=== PATIENT | male | born 1975 | race Caucasian/White ===

== ENCOUNTER 2016-10-20 06:47 | Inpatient (IN) | payer OTHER ==
[~2016-10-20] VITALS: Ht 180.3 cm; Wt 72.0 kg
[~2016-10-20 06:47] MED LIST: BACTRIM,SEPT1 TABLET PO; CLINDAMYCIN HC300 MG PO; FLEXERIL10 MG PO; LIDODERM 5% P1 PATCH TD; LOW DOSE ASPIRI81 M2 PO; NAPROXEN500 MG PO; NOHOMEMEDS; PERCOCET 5/31 TABLET PO; VICODIN,LORT1 TABLET PO
[2016-10-20 07:35] LABS: EOSINOPHIL COUNT 0.1 K/uL (0-0.3); IMMATURE GRANULOCYTE (%) 0.3 % (0.0-0.7); LYMPHOCYTE COUNT 0.7 K/uL (1.0-2.8); MCH 30.8 PG (29.0-34.0); MCHC 35.2 G/DL (30.0-36.0); MCV 87.5 FL (86-99); MEAN PLAT.VOLUME 11.2 uM^3 (9.0-12.4); MONOCYTE (%) 3.5 % (3-12); MONOCYTE COUNT 0.3 K/uL (0-0.8); NEUTROPHIL (%) 87.3 % (45-76); NEUTROPHIL COUNT 8.3 K/uL (1.8-6.4); PLATELET COUNT 140 K/uL (156-360); RBC DIS.WIDTH-CV 13.6 % (11.8-14.6); RBC DIS.WIDTH-SD 43.2 % (39-53); RED BLOOD COUNT 5.03 M/uL (4.00-5.50); WHITE BLOOD COUNT 9.5 K/uL (4.1-10.2)
[2016-10-20 07:36] LABS: INTER. NORMALIZED RATIO 1.1; PROTHROMBIN TIME 11.6 (9.2-11.2); PTT 31.5 (25-32)
[2016-10-20 08:12] LABS: TROP-I INTERPRETATION NEGATIVE; TROPONIN-I < 0.01 ng/mL (0.0-0.30)
[2016-10-20 08:13] LABS: ANION GAP 8 MEQ/L (2-14); CHLORIDE 103 MEQ/L (99-109); GFR ESTIMATE (CALCULATED) > 59 mL/min/; GLUCOSE 90 mg/dL (70-99); POTASSIUM 3.7 MEQ/L (3.7-5.4); SAMPLE HEMOLYSIS CHECK 0; SAMPLE ICTERIC CHECK 0; SAMPLE LIPEMIA CHECK 0; SODIUM 139 MEQ/L (136-147); UREA NITROGEN (BUN) 6 mg/dL (9-23)
[2016-10-20 09:47] LABS: APPEARANCE CLEAR/COLORLESS
[2016-10-20 09:48] LABS: CSF EOSINOPHILS ND % (0-25); MONONUCLEAR WBC'S ND % (50-90); POLYNUCLEAR WBC'S ND % (0-3); RED CELL COUNT 0 /MM^3 (0-1); RED CELL DILUTION 1; WBC DILUTION 1; WHITE CELL COUNT 0 /MM^3 (0-5); WHITE CELL RAW COUNT 0
[2016-10-20] MEDS ORDERED: LOW DOSE ASPIRI81 M1 PO (10:29)
[2016-10-20] MEDS ORDERED: LORATADINE10 M2 PO (10:29)
[2016-10-20] MEDS ORDERED: ATORVASTATIN CA10 MG PO (10:30)
[2016-10-20] MEDS ORDERED: CITALOPRAM HBR20 MG PO (10:30)
[2016-10-20] MEDS ORDERED: MOTRIN400 MG PO (10:30)
[2016-10-20 10:31] LABS: D-DIMER ELISA 0.45 mg/L FEU (< 0.57)
[2016-10-20 11:59] LABS: ADD MIUA? YES; BILIRUBIN NEGATIVE; BLOOD NEGATIVE; COLOR YELLOW ((YELLOW)); GLUCOSE (STRIP) NEGATIVE; KETONES NEGATIVE; LEUKOCYTES NEGATIVE; NITRITE NEGATIVE; PROTEIN (STRIP) NEGATIVE; SPECIFIC GRAVITY 1.015 (1.000-1.030); UROBILINOGEN 0.2 MG/DL (0.2-1.0)
[2016-10-20 12:03] LABS: BACTERIA NONE SEEN /HPF; EPITHELIAL CELLS NONE SEEN /HPF; HYALINE CASTS 0-5 /LPF; MUCUS TRACE /LPF; RED BLOOD CELLS 0-5 /HPF (0-5); UCUL ADDED? NO; WHITE BLOOD CELLS 0-5 /HPF (0-5)
[2016-10-20 12:26] LABS: HDL CHOLESTEROL 28 MG/DL (Desirable>=40); LDL CHOLESTEROL 121 mg/dL (Desirable<100); NON-HDL CHOLESTEROL 144 mg/dL (Desirable<160); TOTAL CHOLESTEROL 172 mg/dL (Desirable<200); TRIGLYCERIDES 115 MG/DL (Normal: <150)
[2016-10-20 12:40] LABS: CRYSTALS NONE SEEN
[2016-10-20 12:42] LABS: CASTS PRESENT /LPF
[2016-10-20 13:26] VITALS: BP 106/61
[2016-10-20 16:11] VITALS: BP 108/63
[2016-10-20 16:46] LABS: METH RESISTANT S AUREUS PCR NEGATIVE (NEGATIVE)
[2016-10-20 16:47] LABS: PROBE CHECK PASS; SPECIMEN PROCESSING CONTROL PASS
[2016-10-20 17:06] LABS: Estimated Average Glucose 111 mg/dL (70-123); HEMOGLOBIN A1c (GLYCOHEMOGLOB) 5.5 % HGB (Below 5.7)
[2016-10-20 17:18] LABS: TROP-I INTERPRETATION NEGATIVE; TROPONIN-I < 0.01 ng/mL (0.0-0.30)
[2016-10-20 19:45] VITALS: BP 125/69
[2016-10-20 23:44] LABS: TROP-I INTERPRETATION NEGATIVE; TROPONIN-I < 0.01 ng/mL (0.0-0.30)
[2016-10-20 23:49] VITALS: BP 117/59
[2016-10-21] VITALS (7 sets, daily range): BP systolic 107–132; BP diastolic 58–73
[2016-10-21 07:45] LABS: MCHC 34.4 G/DL (30.0-36.0); MCV 87.2 FL (86-99); MEAN PLAT.VOLUME 11.4 uM^3 (9.0-12.4); PLATELET COUNT 114 K/uL (156-360); RBC DIS.WIDTH-CV 13.5 % (11.8-14.6)
[2016-10-21 07:53] LABS: WHITE BLOOD COUNT 12.4 K/uL (4.1-10.2)
[2016-10-21 10:47] LABS: INFLUENZA A VIRAL ANTIGEN INVALID ASSAY; INFLUENZA B VIRAL ANTIGEN INVALID ASSAY
[2016-10-22 04:59] VITALS: BP 127/74
[2016-10-22 07:48] VITALS: BP 124/79
[2016-10-22] MEDS ORDERED: LEVAQUIN750 MG PO (10:43)
[2016-10-22] MEDS ORDERED: NICOTINE PATCH1 EAC2 TD (10:43)
[2016-10-22] MEDS ORDERED: VENTOLIN HFA18 GM IH (10:44)
[2016-10-22 11:30] VITALS: BP 134/80
== END 2016-10-22 15:42 | disposition home or self-care (01) | DRG 195 ==
LOC: EME 06:47 → EDOF 10:18 → 5WEST 10:18 → EDOF 10:18 → 5WEST 12:53
PROVIDERS: Emergency Medicine; Internal Medicine; Nurse Practitioner Family
PROC: 009U3ZX Drainage of Spinal Canal, Percutaneous Approach, Diagnostic (ICD-10-PCS; principal; 2016-10-21)
DX: J18.9 Pneumonia, unspecified organism (principal); D69.6 Thrombocytopenia, unspecified; R07.9 Chest pain, unspecified; E78.5 Hyperlipidemia, unspecified; R00.1 Bradycardia, unspecified; F32.9 Major depressive disorder, single episode, unspecified; F17.210 Nicotine dependence, cigarettes, uncomplicated; R55 Syncope and collapse; R94.31 Abnormal electrocardiogram [ECG] [EKG]; F41.9 Anxiety disorder, unspecified
CPT/HCPCS: 70450; 71010; 71020; 80048; 80061; 81003; 82945; 83036; 83605; 84157; 84484; 85025; 85027; 85379; 85610; 85730; 87040; 87070; 87205; 87502; 87641; 89051; 93005; 93306; 93880; 94640; 99202; 99281; 99285; G0378; J0696; J1885; J2270; J7030; J7050